=== PATIENT | female | born 1970 | race Caucasian/White ===

== ENCOUNTER 2016-06-02 09:05 | Observation (INO) | payer BC ==
[2016-05-28 15:56] LABS: BASOPHILS 0.3 %; BASOPHILS ABSOLUTE 0.02 10/3/uL (0.0-0.16); EOSINOPHILS 2.3 %; EOSINOPHILS ABSOLUTE 0.14 10/3/uL (0.0-0.53); HEMATOCRIT 48.6 % (36.0-48.0); HEMOGLOBIN 16.1 g/dL (12.0-16.0); IMMATURE GRANULOCYTES 0.3 %; IMMATURE GRANULOCYTES ABSOLUTE 0.02 10/3/uL (0.0-0.11); LYMPHOCYTES 47.4 %; LYMPHOCYTES ABSOLUTE 2.89 10/3/uL (0.67-4.30); MEAN CORPUS HGB CONC 33.1 g/dL (32.0-36.0); MEAN CORPUSCULAR HEMOGLOB 28.6 pg (26.0-34.0); MEAN CORPUSCULAR VOLUME 86.5 fL (80-100); MONOCYTES 4.8 %; MONOCYTES ABSOLUTE 0.29 10/3/uL (0.21-1.20); NEUTROPHILS 44.9 %; NEUTROPHILS ABSOLUTE 2.74 10/3/uL (2.02-8.40); PLATELET COUNT 231 10/3/uL (150-400); RBC DISTRIBUTION WIDTH 13.4 % (12.0-16.0); RED CELL COUNT 5.62 10/6/uL (4.0-5.6); WHITE BLOOD CELLS 6.1 10/3/uL (4.5-10.5)
[2016-05-28 16:00] LABS: MANUAL DIFF NO %
[2016-05-28 16:04] LABS: BUN (BLOOD UREA NITROGEN) 14 MG/DL (6-23); CALCIUM, SERUM 9.2 MG/DL (8.5-10.4); CHLORIDE, SERUM 101 MMOL/L (96-112); CO2 (CARBON DIOXIDE) 28 MMOL/L (24-34); CREATININE 0.67 MG/DL (0.55-1.02); GFR AFRICAN AMERICAN 121 ML/MIN (>=60); GFR NON AFRICAN AMERICAN 105 ML/MIN (>=60); POTASSIUM, SERUM 3.8 MMOL/L (3.5-5.3); SODIUM, SERUM 141 MMOL/L (135-148)
[2016-05-28 16:05] LABS: GLUCOSE, SERUM 157 MG/DL (60-99)
[2016-05-28 16:07] LABS: PARTIAL THROMBO TIME 26.3 SEC (22.5-37.2); PROTIME (NOT ORD) 13.4 SEC (12.0-14.5)
[2016-05-28 16:17] LABS: ASCORBIC ACID (UR NOT ORDER) NEG (NEG); BILIRUBIN, URINE NEGATIVE (NEG); KETONE, URINE 20 MG/DL (NEG); LEUKOCYTE ESTERASE(NOT OR MOD (NEG); WBC (NOT ORDERED) (RFLEX) 86 (0-5)
--- NOTE | ~2016-06-02 | OP ---
Record Of Operation [facility] [address] [place]. [address] NAME: ALISSON SHAW : 68 STATUS : DIS Janelle PAT#: [id number] AGE: 46 ADM/REG DATE : 06/02/16 MR#: [id number] REPORT SERV DATE: 06/09/16 DICTATED BY: JOSÉ MANUEL VELASQUEZ DATE: 06/09/16 REPORT STATUS : Draft TRANSCRIBED BY: MODL DATE: 06/09/16 DATE OF PROCEDURE: 06/02/2016 PREOPERATIVE DIAGNOSIS: Grade 1 endometrial adenocarcinoma of the uterus. POSTOPERATIVE DIAGNOSIS: Grade 1 endometrial adenocarcinoma of the uterus. PROCEDURE: Robot-assisted laparoscopic hysterectomy with bilateral salpingo-oophorectomy, CPT code 43050; intraoperative sentinel lymph node injection with identification, CPT code 22038; and laparoscopic lymph node biopsy x2, CPT code 36280, with cystoscopy. SURGEON: José Manuel Velasquez MD ANESTHESIA: General. ESTIMATED BLOOD LOSS: 50 mL. CRYSTALLOID: 1500 mL. URINE OUTPUT: 200 mL. DRAINS: Schmidt. FINDINGS: Grossly normal-appearing uterus, fallopian tubes, and ovaries. There was a minimal amount of tumor noted within the endometrial cavity after it was opened at the bedside following the hysterectomy. No grossly enlarged lymph nodes were encountered. There was a sentinel lymph node from each side taken from the external iliac lymph node chain. COMPLICATIONS: None. PATHOLOGY: Uterus, uterine, cervix, bilateral fallopian tubes, ovaries, bilateral sentinel lymph nodes pelvic washings. POSTOPERATIVE PLAN: Extubated to PACU. PROCEDURE IN DETAIL: After informed consent was signed, the patient was taken to the operating room and placed in dorsal supine position where adequate general anesthesia was administered. She was then placed in dorsal lithotomy position in David stirrups, prepped and draped in usual fashion, and a Schmidt catheter was placed. A left upper quadrant incision was made with a scalpel and carried down to the fascia which was incised, muscle , posterior sheath entered sharply, trocar placed and abdomen insufflated with CO2 gas. Additional robotic trocars were placed in the supraumbilical region, bilateral upper quadrants, and right lateral flanks; all under direct visualization. The uterus was sounded, cervix dilated. The cervix was injected at the 3 and 9 o'clock position with ICG dye. The uterine manipulator was then assembled and deployed. The patient was placed in Record Of Operation [facility] [address] [place]. [address] NAME: ALISSON SAHW : 68 STATUS : DIS Janelle PAT#: [id number] AGE: 46 ADM/REG DATE : 06/02/16 MR#: [id number] REPORT SERV DATE: 06/09/16 DICTATED BY: JOSÉ MANUEL VELASQUEZ DATE: 06/09/16 REPORT STATUS : Draft TRANSCRIBED BY: LEONEL DATE: 06/09/16 steep Trendelenburg and the robot docked in the usual fashion. Bilateral round ligaments were taken with bipolar cautery, transected with monopolar scissors. The pelvic peritoneum was taken down lateral and parallel to the infundibulopelvic ligaments. The pararectal and paravesical spaces were developed and the bilateral ureters were identified and reflected medially. Clips were placed in the origins of the uterine arteries bilaterally using the firefly scope. Downey lymph nodes were identified in each external iliac lymph node chain. These were removed as separate specimens and brought out through the assistant scientist port and sent as sentinel node specimens. Next, the infundibulopelvic ligaments were then taken with bipolar cautery, transected with monopolar scissors, and the broad ligament taken down to the level of the cervix. A posterior colpotomy was made. Next, the vesicouterine peritoneum was then incised and the bladder taken down well beneath the level of the anterior EVANS ring and the anterior colpotomy was made. The uterine vessels were then taken at the cervix with bipolar cautery, transected with monopolar scissors, and the parametria reflected off the cervical stroma. The anterior and posterior colpotomies were then connected using monopolar scissors; and the uterus, uterine, cervix, and bilateral adnexa were then brought out through the vagina. The uterus was opened at the bedside with minimal amount of gross tumor appreciated. There was no evidence of gross myometrial invasion. The vagina was then closed with 0 180 V-Loc suture in a running stitch. The pelvis was irrigated. Excellent hemostasis was obtained. All instruments were removed from the abdomen and the robot was undocked, and CO2 gas evacuated. The Schmidt catheter was then removed and the cystoscope placed through the urethra and the bladder was distended with appropriate media. Bilateral ureteral jets were noted suggesting bilateral ureteral patency. The cystoscope was removed and the bladder drained. CO2 gas was then reintroduced into the abdomen using the laparoscope, the pelvis was re-examined and found to be hemostatic. The laparoscope and all trocars were then removed from the abdomen. CO2 gas evacuated. The fascia from the left upper quadrant incision was closed with 0 Vicryl suture and the skin from all trocar sites was closed with 4-0 Monocryl and Dermabond. The patient tolerated the procedure well and was placed back in dorsal supine position, awakened, extubated, and sent to the PACU in stable condition. Appropriate antibiotics were given prior to start of the procedure. TB/MODL José Manuel Velasquez MD / [id number] CC: MD Khurram Salazar M.D.
[~2016-06-02 09:05] MED LIST: DIOVAN HC1 PO; GLUCOPHAGE1000 MG PO; INVOKANA300 MG PO; LIPITOR10 PO; SYN.15 PO; TRULICITY1.5 MG/0.5 SQ
[2016-06-03 04:59] LABS: BASOPHILS 0.2 %; BASOPHILS ABSOLUTE 0.02 10/3/uL (0.0-0.16); EOSINOPHILS 0.1 %; EOSINOPHILS ABSOLUTE 0.01 10/3/uL (0.0-0.53); HEMOGLOBIN 13.7 g/dL (12.0-16.0); IMMATURE GRANULOCYTES 0.7 %; IMMATURE GRANULOCYTES ABSOLUTE 0.06 10/3/uL (0.0-0.11); LYMPHOCYTES 25.9 %; LYMPHOCYTES ABSOLUTE 2.12 10/3/uL (0.67-4.30); MEAN CORPUS HGB CONC 33.6 g/dL (32.0-36.0); MEAN CORPUSCULAR HEMOGLOB 29.1 pg (26.0-34.0); MEAN CORPUSCULAR VOLUME 86.8 fL (80-100); MEAN PLATELET VOLUME 10.3 fL (9.2-13.0); MONOCYTES 6.1 %; NEUTROPHILS ABSOLUTE 5.49 10/3/uL (2.02-8.40); PLATELET COUNT 259 10/3/uL (150-400); WHITE BLOOD CELLS 8.2 10/3/uL (4.5-10.5)
[2016-06-03 05:01] LABS: HEMATOCRIT 40.8 % (36.0-48.0); MANUAL DIFF NO %
[2016-06-03 05:11] LABS: CALCIUM, SERUM 8.4 MG/DL (8.5-10.4); CHLORIDE, SERUM 103 MMOL/L (96-112); CO2 (CARBON DIOXIDE) 27 MMOL/L (24-34); CREATININE 0.53 MG/DL (0.55-1.02); GFR AFRICAN AMERICAN 131 ML/MIN (>=60); GFR NON AFRICAN AMERICAN 113 ML/MIN (>=60); GLUCOSE, SERUM 186 MG/DL (60-99); SODIUM, SERUM 141 MMOL/L (135-148)
[2016-06-03 05:13] LABS: BUN (BLOOD UREA NITROGEN) 8 MG/DL (6-23)
[2016-06-03] MEDS ORDERED: BIST PO (10:59)
[2016-06-03] MEDS ORDERED: MINERAL OIL PO (11:00)
[2016-06-03] MEDS ORDERED: MYLICON 80 MG T80 MG PO (11:01)
[2016-06-03] MEDS ORDERED: PCET PO (11:03)
[2016-06-03] MEDS ORDERED: COMP10B PO (11:04)
== END 2016-06-03 12:16 | disposition home or self-care (01) ==
LOC: SDC 09:05 → SDC/OF 16:19 → 4SO 17:00
PROVIDERS: Obstetrics & Gynecology Gynecology
PROC: 0UT24ZZ Resection of Bilateral Ovaries, Percutaneous Endoscopic Approach (ICD-10-PCS; 2016-06-02)
PROC: 0UT74ZZ Resection of Bilateral Fallopian Tubes, Percutaneous Endoscopic Approach (ICD-10-PCS; 2016-06-02)
PROC: 07BC4ZX Excision of Pelvis Lymphatic, Percutaneous Endoscopic Approach, Diagnostic (ICD-10-PCS; 2016-06-02)
PROC: 0UT94ZZ Resection of Uterus, Percutaneous Endoscopic Approach (ICD-10-PCS; principal; 2016-06-02 11:00)
PROC: 0UTC4ZZ Resection of Cervix, Percutaneous Endoscopic Approach (ICD-10-PCS; 2016-06-02 11:00)
DX: C55 Malignant neoplasm of uterus, part unspecified (principal); I10 Essential (primary) hypertension; E78.00 Pure hypercholesterolemia, unspecified; E03.9 Hypothyroidism, unspecified; E11.9 Type 2 diabetes mellitus without complications; E66.01 Morbid (severe) obesity due to excess calories; Z68.43 Body mass index [BMI] 50.0-59.9, adult
CPT/HCPCS: 36415; 71020-PO; 80048; 81001; 82962; 84703; 85025; 85610; 85730; 86850; 86900; 86901; 87077; 87086; 87186; 88112; 88305; 88307; 88309; 88341; 88342; 93005; 94640; 96374; 96376; A9270-GY; G0378; J0694; J2250; J2370; J2405; J2550; J2710; J2795; J3010